=== PATIENT | male | born 1975 | race Hispanic/Latino ===

== ENCOUNTER 2024-10-01 17:45 | Emergency (ER) | payer BC, SELFPAY ==
[2024-10-01 18:05] VITALS: BP 133/77
[2024-10-01 18:24] LABS: % Basophils 0.7 % (0-2); % Eosinophils 1.8 % (0-6); % Immature Granulocytes 0.2 % (0-0.5); % Neutrophils 58.3 % (42.2-75.2); Absolute Eosinophils 0.1 10^3/uL (0-0.7); Absolute Lymphocytes 1.9 10^3/uL (1.2-3.4); Absolute Monocytes 0.3 10^3/uL (0.1-0.6); Absolute Neutrophils 3.3 10^3/uL (1.4-6.5); Hematocrit 38.9 % (39.0-52.0); Hemoglobin 13.2 g/dL (13.0-18.0); Mean Corp Hgb Conc. 33.9 g/dL (33.0-37.0); Mean Corpuscular Hgb 30.3 pg (27.0-31.0); Mean Corpuscular Volume 89.2 fL (80.0-94.0); Mean Platelet Volume 10.4 fL (7.4-10.4); Nucleated Red Blood Cells % 0 % (-); Platelet Count 185 10^3/uL (130-400); Red Blood Cell Count 4.36 10^6/uL (4.70-6.10); Red Cell Dist. Width 12.5 % (11.5-14.5); White Blood Cell Count 5.7 10^3/uL (4.8-10.8)
[2024-10-01 18:46] LABS: ALT (SGPT) 29 U/L (0-50); AST (SGOT) 29 U/L (17-59); Albumin 4.2 g/dl (3.5-5.0); Alkaline Phosphatase 81 U/L (38-126); Blood Urea Nitrogen 16 mg/dl (9-20); Calcium 8.9 mg/dl (8.4-10.2); Carbon Dioxide 31 mmol/L (22-30); Chloride 102 mmol/L (98-107); Glucose 102 mg/dl (70-99); Potassium 4.3 mmol/L (3.5-5.1); Sodium 139 mmol/L (135-145); Total Bilirubin 0.8 mg/dl (0.2-1.3); Total Protein 6.8 g/dl (6.3-8.2); eGFR > 60.00
[2024-10-01 18:48] LABS: Troponin I 0.015 ng/ml
[2024-10-01 19:41] VITALS: BMI 31.5
[2024-10-01 19:49] VITALS: BP 139/83
--- NOTE | 2024-10-01 19:49 | ED.GENMED ---
History of Present Illness
General
Chief Complaint: Chest Pain
Source: patient
Exam Limitations: none
Time Seen by Provider: 10/01/24 19:43
History of Present Illness
History of Present Illness:
See MDM
Past History
Past History
ED Past Medical History: Cancer (Breast)
ED Past Surgical History: Other (Gastric bypass)
Social History
Tobacco: Non-smoker
Alcohol: None
Phy Exam
Physical Exam
Physical Exam:
See MDM
Scores
Heart Score for Chest Pain Patients
STEMI patient?: No
History: Slightly or Non-Suspicious
ECG: Nonspecific Repolarization
Age: >45 - <65 years
Risk Factors: 1 or 2 Risk Factors
Troponin: </= Normal Limit
Heart Score for Chest Pain Patients: 3
Heart Score Risk: 2.5% MACE over next 6 weeks
Course
Orders/Labs/Results
Orders:
Orders
10/01/24 17:47
EKG [Electrocardiogram (*1)] Stat
Reason for Study: Chest Pain
10/01/24 17:48
EKG- Treatment ONCE
10/01/24 18:15
Complete Blood Count/With Diff Urgent
Comprehensive Metabolic Panel Urgent
Troponin I Urgent
10/01/24 19:48
Electrocardiogram (*1) Urgent
Reason for Study: Chest Pain
EKG- Treatment ONCE
10/01/24 19:49
CR Chest - 2 Views Urgent
Comment:
Reason For Exam: intermittent left side chest pain
10/01/24 21:23
Troponin I Urgent
Abnormal Lab Results
10/01/24
18:15
RBC 4.36 L 10^6/uL
(4.70-6.10)
Hct 38.9 L %
(39.0-52.0)
Carbon Dioxide 31 H mmol/L
(22-30)
Glucose 102 H mg/dl
(70-99)
10/01/24 18:15
10/01/24 18:15
Vital Signs
Initial and Last Documented VS:
Initial Vital Signs
Temp Pulse Resp BP Pulse Ox
98.1 F 55 16 133/77 100
10/01/24 18:05 10/01/24 18:05 10/01/24 18:05 10/01/24 18:05 10/01/24 18:05
Last Documented Vital Signs
Temp Pulse Resp BP Pulse Ox
98.1 F 55 10 131/90 98
10/01/24 18:05 10/01/24 21:45 10/01/24 20:10 10/01/24 21:26 10/01/24 19:57
MDM/Problems Addressed
Differential Diagnosis Includes:
HPI and MDM Narrative:
48-year-old male presenting for evaluation of intermittent left-sided chest pain. Patient unsure if this is related to heavy lifting or his job. It is not worse with exertion. It appears random and last for few minutes at a time. Patient was
worried because he has had cardiology evaluation in the past and has had coronary artery CT in the past showing an elevated calcium score.
On exam, patient is comfortable appearing. EKG does have nonspecific ST elevation but there is no reciprocal changes. Troponin is negative. Will repeat troponin EKG and obtain chest x-ray
Physical exam
General: Well appearing and non-toxic
HEENT: protecting airway
Neck: appears supple
CV: No evidence of cyanosis. Regular rate and rhythm
Resp: No accessory muscle use. Lungs clear
Abd: Non-distended
Extremities: No deformities. No leg edema or tenderness
Neuro: alert
Psych: Normal affect
Skin: Intact
Problems Addressed including Acute and Chronic Conditions affecting care:
1. Intermittent chest pain
Acuity: acute
Prognosis: stable
Details: Given no exertional component, doubt ACS. However, patient does have history of coronary artery disease. Will obtain second troponin and second EKG. Will obtain chest x-ray
Updates
Chest x-ray clear. Troponin negative x 2. Patient remains symptom-free. 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
Differential Diagnosis (but not limited to): Noncardiac chest pain, ACS, muscle strain
Testing considered: D-dimer but he is neither tachycardic nor hypoxic
Drug therapy (if applicable): OTC meds, please see d/c instruction regarding Rx drugs
Amount and/or Complexity of Data Reviewed
Clinical info obtained from: Patient
External data reviewed: N/A
Labs I independently reviewed (but not limited to): Troponin negative x 2
Radiology: X-ray independently reviewed: Chest x-ray clear
Pulse Ox: not hypoxic
EKG independently reviewed: Sinus bradycardia, normal axis, mild ST elevation anteriorly. No reciprocal changes
Cyber Systems Operations Specialist: N/A
Critical Care: N/A
Risk of Complication:
Social Determinants of health: Good social support
Discussed with other providers: N/A
Escalation of Care includes Admit/Obs: After being observed in the Emergency Department, pt stable for discharge.
Occasional wrong word or 'sound a like' substitutions may have occurred due to the inherent limitations of voice recognition software. Read the chart carefully and recognize, using context, where substitutions have occurred.
*Critical Care Note
Total Time (30-74mins, 75-104mins- exclusive of procedures): Not Applicable
ED Attending Note
-
Portions of this chart may have been created with voice recognition software.� Occasional wrong word or��sound alike� substitutions may have occurred due to the inherent limitations of voice recognition software.
Discharge Plan
Departure
Patient Disposition: Home (Routine Discharge)
Date of Disposition: 10/01/24
Time of Disposition: 22:15
Patient with high blood pressure during this ER visit?: No
Discharge Problem:
Chest pain
Instructions: Chest Pain PCP Follow Up
Referrals:
UNKNOWN - PT DOES,NOT KNOW [Family Provider] -
Activity Restrictions/Additional Instructions:
Please return for any worsening symptoms.
You may return at any time if you have further concerns.
Please follow up with your doctor at the first available appointment, preferably this week.
Thank you for choosing [facility].
Interventions
Interventions:
*Risk Screen - Suicide Last Done: 10/01/24 18:05
*General Assessment Last Done: 10/01/24 18:05
*Neglect/Abuse Screening Last Done: 10/01/24 18:05
ED- Fall Risk Assessment Last Done: 10/01/24 19:41
*ED COVID-19 Vaccine History Last Done: 10/01/24 19:41
ED- Cardiac Assessment Last Done: 10/01/24 19:41
Discharge Date and Time
Print Language: ROMANIAN
[2024-10-01 20:00] VITALS: BP 135/90
[2024-10-01 21:26] VITALS: BP 131/90
[2024-10-01 22:00] VITALS: BP 122/87
[2024-10-01 22:03] LABS: Troponin I 0.013 ng/ml
== END 2024-10-01 22:24 | disposition home or self-care (01) ==
LOC: EMR 17:45
PROVIDERS: EMERGENCY PHYSICIAN Student in an Organized Health Care Education/Training Program
DX: R07.89 Other chest pain (principal); Z98.84 Bariatric surgery status; Z85.3 Personal history of malignant neoplasm of breast; Z88.7 Allergy status to serum and vaccine
CPT/HCPCS: 99284; 71046; 80053; 84484; 85025; 93005